=== PATIENT | female | born 1955 | race Caucasian/White ===

== ENCOUNTER → 2018-07-19 | Outpatient (CLI) | payer BC ==
--- NOTE | 2018-07-19 13:23 | KCIC ---
Bilateral digital screening mammograms: Reason for examination: Routine screening. Comparison is made to previous studies dated 07/01/2016 and 05/09/2015. Interpretation was made with the benefit of CAD. The skin and nipples show no abnormalities. No abnormal axillary lymph nodes are seen. The breast parenchyma shows scattered fibroglandular density. (Breast density: Category B.) There appear to be new nodular parenchymal densities present in the left breast probably at the lower inner quadrant with the largest at the 6:00 position posteriorly measuring approximately 5.2 mm in size. These may represent cysts but recommend further evaluation with ultrasound. There are no other dominant masses, suspicious calcifications or architectural distortions. A few benign calcifications are present. Impression: Small nodular densities in the left breast predominantly in the lower inner quadrant. Recommend further evaluation with ultrasound. BI-RADS Category 0: Incomplete. Needs additional imaging evaluation. "Our facility is accredited by the [employer] Mammography Program." This patient's information has been entered into a reminder system for the patient to be notified with the results of her examination and a target date for the next mammogram. Electronically signed by: Martita Rodriguez MD (07/19/2018 1:19 PM) [id number]
== END | disposition home or self-care (01) ==
LOC: KCIC MAMMO 07:44
PROVIDERS: ATTEND Internal Medicine
DX: Z12.31 Encounter for screening mammogram for malignant neoplasm of breast (principal)
CPT/HCPCS: 77067

== ENCOUNTER → 2018-07-28 | Outpatient (CLI) | payer BC ==
--- NOTE | 2018-07-28 10:00 | KCIC ---
Left breast ultrasound: Reason for examination: Increased nodularity inferiorly in the left breast on screening mammogram. Comparison is made to mammographic exam dated 07/19/2018. Left whole breast ultrasound including evaluation of all 4 quadrants and the retroareolar and axillary regions of the left breast was performed. There are small cystic lesions present in the 3:00, 6:00 and 9:00 positions measuring up to 5.2 mm in size. No solid suspicious-appearing nodules are seen. No abnormal appearing lymph nodes are seen. IMPRESSION: Small cysts measuring up to 5.2 mm in size in the left breast. No suspicious abnormality seen. Recommend routine mammographic follow-up. BI-RADS Category 2: Benign. "Our facility is accredited by the [employer] Mammography [employer]." This patient's information has been entered into a reminder system for the patient to be notified with the results of her examination and a target date for the next mammogram. Electronically signed by: Martita Rodriguez MD (07/28/2018 9:56 AM) [id number]
== END | disposition home or self-care (01) ==
LOC: KCIC US 08:52
PROVIDERS: ATTEND Internal Medicine
DX: N60.02 Solitary cyst of left breast (principal)
CPT/HCPCS: 76641

== ENCOUNTER 2020-08-03 09:00 | Emergency (ER) | payer BC ==
[~2020-08-03] VITALS: Ht 154.9 cm; Wt 84.0 kg
[2020-08-03] MEDS ORDERED: FAMOTIDINE 20 MG/2 ML VIAL IVP ONE (09:15)
[2020-08-03] MEDS ORDERED: ONDANSETRON PF 4 MG/2 ML VIAL. IVP ONE (09:15)
[2020-08-03] MEDS ORDERED: IV NORMAL SALINE 1000ML BAG 1,000 ML IV ONE (09:15)
[2020-08-03 09:40] LABS: BASO # 0.1 x10^3/uL (0.0-0.2); BASO % 2 % (0-3); EOS # 0.6 x10^3/uL (0.0-0.7); EOS % 7 % (0-3); HEMATOCRIT 39.9 % (36.0-47.0); HEMOGLOBIN 13.6 g/dL (12.0-15.5); LYMPH % 37 % (24-48); MEAN CORPUSCULAR HEMOGLOBIN 30 pg (25-35); MEAN CORPUSCULAR HGB CONC 34 g/dL (31-37); MEAN CORPUSCULAR VOLUME 88 fL (79-100); MONO # 0.2 x10^3/uL (0.0-1.1); MONO % 3 % (0-9); NEUT # 4.2 x10^3/uL (1.8-7.7); NEUT % 52 % (31-73); PLATELET COUNT 269 x10^3/uL (140-400); RED BLOOD COUNT 4.52 x10^6/uL (3.50-5.40); RED CELL DISTRIBUTION WIDTH 14.4 % (11.5-14.5); WHITE BLOOD COUNT 8.2 x10^3/uL (4.0-11.0)
[2020-08-03] MEDS ORDERED: MECLIZINE HCL 12.5 MG TABLET. PO ONE (09:45)
[2020-08-03] MEDS ORDERED: DEXAMETHASONE SOD PHOS 4 MG/ML VIAL IVP ONE (09:45)
--- NOTE | 2020-08-03 09:49 | PHYS DOC ---
Past Medical History Past Medical History: Hypertension Additional Past Medical Histor: thyroid dz, pre-DM (per patient disclosure) Past Surgical History: No Surgical History Smoking Status: Never Smoker Alcohol Use: Rarely Drug Use: None General Adult EDM: Chief Complaint: DIZZY/LIGHT HEADED HPI: HPI: 65 years old female came to the ER with chief complaint of dizziness since after eating chicken meals with others. None of the dining associates repot illness. Associated symptom since include 3-4 bowel diarrhea ("brown fluid"). Dizziness on standing and occasionally worsened on lying down. Patient also experience weakness. Denies fever/chills. Denies trauma. Review of Systems: Review of Systems: Constitutional: Denies fever, reports chills Eyes: Denies redness or eye pain, keep eye closed, report dizziness when eyes are open HENT: Denies nasal congestion or sore throat Respiratory: Denies cough or shortness of breath Cardiovascular: Denies chest pain or palpitations GI: Denies abdominal pain, nausea, or vomiting; reports diarrhea : Denies dysuria or hematuria Musculoskeletal: Denies back pain or joint pain Integument: Denies rash or skin lesions Neurologic: Denies headache, focal weakness or sensory changes; reports dizziness Complete systems were reviewed and found to be within normal limits, except as documented in this note. Heart Score: HEART Score for Chest Pain: HEART Score for Chest Pain Response (Comments) Value History Slighlty/Non-Suspicious 0 ECG Normal 0 Age >45 - < 65 1 Risk Factors 1 or 2 Risk Factors 1 Troponin < Normal Limit 0 Total 2 Risk Factors: Risk Factors: DM, Current or recent (<one month) smoker, HTN, HLP, family history of CAD, obesity. Risk Scores: Score 0 - 3: 2.5% MACE over next 6 weeks - Discharge Home Score 4 - 6: 20.3% MACE over next 6 weeks - Admit for Clinical Observation Score 7 - 10: 72.7% MACE over next 6 weeks - Early Invasive Strategies Current Medications: Current Medications Medications (Trade) Dose Ordered Sig/Catherine Start Time Stop Time Status Last Admin Dose Admin Famotidine (Pepcid Vial) 20 mg 1X ONCE 08/03/20 09:15 08/03/20 09:16 UNV Meclizine HCl (Antivert) 25 mg 1X ONCE 08/03/20 09:45 08/03/20 09:46 UNV Ondansetron HCl (Zofran) 4 mg 1X ONCE 08/03/20 09:15 08/03/20 09:16 UNV Sodium Chloride 1,000 ml @ 1,000 mls/hr 1X ONCE 08/03/20 09:15 08/03/20 10:14 UNV Physical Exam: PE: Constitutional: Well developed, well nourished, non-toxic appearance, eyes mostly closed during H&P interview and PE HENT: Normocephalic, atraumatic Eyes: conjunctiva normal, no discharge, report dizziness on EOMI testing Neck: Normal range of motion, no tenderness, supple Lungs & Thorax: No respiratory distress, equal chest rise and fall Heart: regular rate and rhythm normal S1-S2 no murmur Abdomen: Soft, no tenderness Skin: Warm, dry, no erythema, no rash Extremities: No tenderness, no edema, UE - weak upon testing bl LE - weak upon testing bl, strong DP pulse bilaterally Neurologic: Alert and oriented, normal motor function, normal sensory function, no focal deficits noted Psychologic: Affect normal, judgment normal EKG: EKG: @ 0915 - sinus rythm, first-degree AV block, AR 200 ms, QRS 92 ms, QT/QTC- 452/471 ms, overall impression normal Radiology/Procedures: Radiology/Procedures: PROCEDURE: CT HEAD WO CONTRAST EXAM: CT head without contrast INDICATION: Dizziness COMPARISON: None TECHNIQUE: Axial CT imaging through the head without intravenous contrast. One or more of the following individualized dose reduction techniques were utilized for this examination: 1. Automated exposure control 2. Adjustment of the mA and/or kV according to patient size 3. Use of iterative reconstruction technique. FINDINGS: The ventricles and sulci are normal. Kline-white matter differentiation is maintained. There is no intracranial hemorrhage, acute infarct, or mass lesion. Skull and scalp are intact. The visualized paranasal sinuses and mastoid air cells are clear. Globes and orbits are intact. IMPRESSION: No acute intracranial abnormality. Electronically signed by: Aviva Gloria MD (08/03/2020 10:06 AM) [id number] Course & Med Decision Making: Course & Med Decision Making 65 years old female with chief complaint of dizziness and diarrhea since eating chicken . Abdomen nonperitoneal. Patient neurologically intact. Difficult to perform EOMI given dizziness and patient noncooperative with keeping eyes open. 1- normal EKG, troponin WNL 2- CT head normal, 3- Vertigo is the most likely diagnosis contributed patient's symptoms of dizziness. After receiving Zofran, symptomatic steroid, and Antivert, patient reported improvement during visit. Patient open eyes to look a provider and answer question instead of closing eyes during initial ED contact. Other labs reviewed and posted to chart. Patient did reports some continued dizziness. Valium PO therefore provided. Patient with interval improvement. Patient stable for discharge home with outpatient follow-up with PCP/ENT. ENT referral provided. Discussed findings and plan with patient, who acknowledges understanding and agreement. Dragon Disclaimer: Dragon Disclaimer: This electronic medical record was generated, in whole or in part, using a voice recognition dictation system. Departure Departure Impression: Primary Impression: Dizziness Disposition: 01 DC HOME SELF CARE/HOMELESS Condition: STABLE Referrals: PER FOX MD (PCP) SUELLEN ALFONSO MD Patient Instructions: Dizziness, Vbpl-hz-Noiz, Vertigo, Fkse-lw-Ioth Scripts Diazepam (VALIUM) 5 Mg Tablet 5 MG PO Q8HRS PRN for DIZZINESS, #14 TAB Prov: YUDITH KNAPP DO 08/03/20 Meclizine Hcl (MECLIZINE HCL) 25 Mg Tablet 1 TAB PO PRN TID PRN for DIZZINESS, #20 TAB Prov: YUDITH KNAPP DO 08/03/20 Prednisone (PREDNISONE) 20 Mg Tablet 2 TAB PO DAILY, #8 TAB Start this prescription tomorrow, Wednesday08/04/2020 Prov: YUDITH KNAPP DO 08/03/20 YUDITH KNAPP DO Aug 03, 2020 09:49
[2020-08-03 10:03] LABS: CALCIUM 9.1 mg/dL (8.5-10.1); CREATINE KINASE 138 U/L (26-192); CREATININE 0.9 mg/dL (0.6-1.0); POTASSIUM 3.6 mmol/L (3.5-5.1)
[2020-08-03 10:06] LABS: ALBUMIN 3.7 g/dL (3.4-5.0); ALBUMIN/GLOBULIN RATIO 0.9 (1.0-1.7); TOTAL BILIRUBIN 0.5 mg/dL (0.2-1.0)
--- NOTE | 2020-08-03 10:08 | RAD ---
EXAM: CT head without contrast INDICATION: Dizziness COMPARISON: None TECHNIQUE: Axial CT imaging through the head without intravenous contrast. One or more of the following individualized dose reduction techniques were utilized for this examinat ion: 1. Automated exposure control 2. Adjustment of the mA and/or kV according to patient size 3. Use of iterative reconstruction technique. FINDINGS: The ventricles and sulci are normal. Kline-white matter differentiation is maintained. There is no int racranial hemorrhage, acute infarct, or mass lesion. Skull and scalp are intact. The visualized paran branden sinuses and mastoid air cells are clear. Globes and orbits are intact. IMPRESSION: No acute intracranial abnormality. Electronically signed by: Aviva Gloria MD (08/03/2020 10:06 AM) [id number]
[2020-08-03 12:22] LABS: BILIRUBIN,URINE NEGATIVE (NEG); CLARITY,URINE CLEAR; COLOR,URINE YELLOW; NITRITE,URINE NEGATIVE (NEG); PH,URINE 7.5 (<5.0-8.0); PROTEIN,URINE NEGATIVE (NEG-TRACE)
[2020-08-03 12:47] LABS: BACTERIA,URINE MODERATE /HPF (0-FEW); RBC,URINE 0 /HPF (0-2)
[2020-08-03] MEDS ORDERED: diazePAM 5 MG TABLET PO ONE (14:30)
[2020-08-03] MEDS ORDERED: DIAZ5TAB PO (15:17)
[2020-08-03] MEDS ORDERED: PRED20TA PO (15:17)
[2020-08-03] MEDS ORDERED: MECL-75 PO (15:17)
[2020-08-03 15:31] VITALS: BP 172/82
--- NOTE | 2020-08-03 17:11 | EKG ---
[facility] [address] [place] [address] Test Date: 2020-08-03 Test Time: 09:12:31 Pat Name: EDDI BUTLER Department: Room: Gender: F Delivery Engineer: : [id number] Requested By: YUDITH KNAPP Order Number: [id number] Reading MD: Measurements Intervals [place]ons Rate: 64 P: 47 IN: 220 QRS: 41 QRSD: 92 T: 56 QT: 452 QTc: 471 Interpretive Statements SINUS RHYTHM PROLONGED IN INTERVAL ABNORMAL ECG RI6.01 No previous ECG available for comparison
== END 2020-08-03 15:52 | disposition home or self-care (01) ==
LOC: ER 09:00
DX: R42 Dizziness and giddiness (principal); R19.7 Diarrhea, unspecified; I10 Essential (primary) hypertension; Z98.890 Other specified postprocedural states
CPT/HCPCS: 36415; 70450; 80053; 81001; 82553; 83735; 84484; 85025; 87086; 93005; 96361; 96374; 96375; 99285; J1100; J2405; J3490; J7030; J8597

== ENCOUNTER → 2021-03-04 | Outpatient (CLI) | payer BC ==
[~2021-03-04] MED LIST: DIAZ5TAB PO; MECL-75 PO; PRED20TA PO
--- NOTE | 2021-03-04 10:28 | KCIC ---
Bilateral digital screening mammograms: Reason for examination: Routine screening. Comparison is made to previous studies dated back to 05/10/2014. Interpretation was made with the benefit of CAD. The skin and nipples show no abnormalities. No abnormal axillary lymph nodes are seen. The breast par enchyma shows scattered fibroglandular density. (Breast density: Category B.) There are new circumscr ibed nodules seen in the left breast on CC view lateral to the nipple 6 cm from the nipple measuring 8 mm in size probably located at the 2:30 B position and medial to the nipple 4 cm from the nipple me asuring 5 mm in size probably located at the 10:00 B position. Further evaluation with ultrasound is recommended. There are no other new dominant masses, suspicious calcifications or architectural disto rtions. A few benign calcifications are present. Impression: Nodules in the left breast seen best on CC view probably located at the 2:30 B and 10:00 B positions. Recommend further evaluation with ultrasound. BI-RADS Category 0: Incomplete. Needs additional imaging evaluation "Our facility is accredited by the [employer] Mammography Program." This patient's information has been entered into a reminder system for the patient to be notified wit h the results of her examination and a target date for the next mammogram. Electronically signed by: Martita Rodriguez MD (03/04/2021 10:25 AM) [email or web address]
--- NOTE | 2021-03-04 10:43 | KCIC ---
EXAM: Abdomen sonogram. HISTORY: Nonalcoholic steatohepatitis. TECHNIQUE: Sonographic imaging of the abdomen was performed. COMPARISON: None. FINDINGS: The liver is mildly enlarged. There is hepatic steatosis. No focal hepatic lesion is seen. The gallbladder is unremarkable. The common bile duct is normal in caliber. The right kidney, pancrea s and inferior vena cava are unremarkable. IMPRESSION: 1. Hepatomegaly and hepatic steatosis. 2. No acute sonographic finding. Electronically signed by: Leela Brown MD (03/04/2021 10:41 AM) [id number]
== END ==
LOC: KCIC US 09:33
PROVIDERS: ATTEND Internal Medicine
DX: Z12.31 Encounter for screening mammogram for malignant neoplasm of breast (principal); N63.21 Unspecified lump in the left breast, upper outer quadrant; K76.0 Fatty (change of) liver, not elsewhere classified
CPT/HCPCS: 76705; 77067

== ENCOUNTER → 2021-03-19 | Outpatient (CLI) | payer MEDICARE, BC ==
--- NOTE | 2021-03-19 11:19 | KCIC ---
EXAM: Left breast sonogram. HISTORY: 66-year-old female presents for evaluation of nodularity within the left breast demonstrated on a screening mammogram dated 03/04/2021. TECHNIQUE: Sonographic imaging of the left breast targeted to sites of mammographic nodularity was pe rformed. COMPARISON: Mammograms dated 03/04/2020 and 07/19/2018. Sonogram dated 07/28/2018.. FINDINGS: There is a circumscribed hypoechoic lesion at the 3:00 position 4 cm the nipple measuring 7 mm in maximum dimension. This demonstrates taller than wide morphology. However, this demonstrates n o additional suspicious imaging features. Specifically, there is no internal blood flow, posterior sh adowing or architectural distortion associated with this lesion. There is is slightly increased in si ze compared to a measurement of 5 mm on the study performed 07/28/2018. The minimal interval change in size also favors benignity. This corresponds with an increasing circumscribed nodule demonstrated ma mmographically in this location. There is a lobulated hypoechoic lesion with internal echoes at the 2:00 position 2 cm for the nipple measuring 1.1 cm in maximum dimension. There is a nearly identical appearing lesion measuring 9 mm at the 10:00 position 3 cm from the nipple. These lesions demonstrate slight posterior through transmis shreyas, favoring a benign complicated cystic etiology. There is no lesion blood flow to suggest a solid lesion component. There is no correlate for these findings on the prior sonogram. The lesion at the 10:00 position likely corresponds with a stable circumscribed nodule demonstrated mammographically. N o additional lesion is seen. There are benign axillary lymph nodes. IMPRESSION: 1. Minimal interval increase in the size of a 7 mm cyst at the 3:00 position 4 cm from the nipple. Th e minimal interval foreign exchange services manager a greater than two-year interval favors benignity. However, given the taller than wide morphology of this lesion, short-term follow-up in 3 months is recommended. 2. 9 mm hypoechoic lesion with lobulated margin and internal echoes at the 10:00 position 3 cm from t he nipple. The sonographic appearance favors a complicated cyst rather than solid nodule. This likely corresponds with a circumscribed nodule in this location on the recent screening mammogram. The grea ter than two-year course of mammographic stability favors benignity. However, given the lesion config uration, attention at the time of aforementioned 3 month follow-up is recommended. 3. 11 mm hypoechoic lesion with lobulated margin and internal echoes at the 2:00 position 2 cm from t he nipple, nearly identical in appearance to the aforementioned finding at the 10:00 position. This i s also likely a complicated cyst. 4. BI-RADS Category 3: Probably benign finding(s). Short term follow up with a left breast sonogram i n 3 months is recommended. Electronically signed by: Leela Brown MD (03/19/2021 11:17 AM) [email or web address]
== END ==
LOC: KCIC US 10:39
PROVIDERS: ATTEND Internal Medicine
DX: N60.02 Solitary cyst of left breast (principal); R92.2 Inconclusive mammogram; N64.89 Other specified disorders of breast
CPT/HCPCS: 76641

== ENCOUNTER → 2021-11-19 | Outpatient (CLI) | payer MEDICARE ==
--- NOTE | 2021-11-19 17:33 | KCIC ---
Ultrasound of the right upper quadrant of the abdomen 11/19/2021 CLINICAL HISTORY: Cirrhosis. TECHNIQUE: A real-time ultrasound examination of the right upper quadrant of the abdomen was wine d. Multiple images were obtained. FINDINGS: Comparison study is dated 03/04/2021. The liver is mildly enlarged measuring 20 cm in length. It is heterogeneous with a slightly nodular c ontour consistent with the patient's history of cirrhosis. No focal abnormality of the liver is seen. The gallbladder is well-distended. No gallstones are visualized. The gallbladder wall thickness is wi thin normal limits. No pericholecystic fluid is seen. The common bile duct measures 4 mm in diameter which is within normal limits. The visualized pancreas is within normal limits. A 8mm nonobstructing calculus is seen involving the lower pole of the right kidney. No free fluid is seen. IMPRESSION: Findings are again seen consistent with the patient's history of cirrhosis. No focal abno rmality of the liver is seen. No ascites is noted. Electronically signed by: Ranjit Rico MD (11/19/2021 5:30 PM) [id number]
== END ==
LOC: KCIC US 08:41
PROVIDERS: ATTEND Internal Medicine
DX: R16.0 Hepatomegaly, not elsewhere classified (principal); N20.0 Calculus of kidney; K82.8 Other specified diseases of gallbladder
CPT/HCPCS: 76705